=== PATIENT | male | born 2000 | race American Indian/Alaskan Native ===

== ENCOUNTER 2020-07-06 17:28 | Emergency (ER) | payer SELFPAY ==
[2020-07-06 19:15] VITALS: BP 133/74
--- NOTE | 2020-07-06 21:09 | Emergency Department Report ---
Chief Complaint: Extremity Injury, Lower Stated Complaint: LT FOOT/LEG Time Seen by Provider: 07/06/20 20:39 - HPI History of Present Illness: This is a 19-year-old male with no prior medical problems who presents to the ED complaining of left lower leg and foot pain times a week. Patient states his been doing a lot of work standing on his feet all day. Patient states that he started getting pain to the left ankle. Patient states that he has been working through the pain and has not really had any days off. Patient states that he has pain with applied pressure. Patient denies falling, any injuries to the foot or leg. Patient denies any calf pain or calf swelling. Patient states that pain is also felt on his right lower leg as well. - ROS Review of Systems: As noted in HPI - Exam Vital Signs: Vital Signs 07/06/20 19:13 Temperature 98.2 F Pulse Rate 72 Respiratory 16 Rate Blood Pressure 133/74 O2 Sat by Pulse 100 Oximetry Physical Exam: GENERAL: Alert and oriented x3, no apparent distress, Normal Gait, atraumatic. HEAD: Head is normocephalic and a-traumatic. EXTREMITIES/MUSCULOSKELETAL: No cyanosis, clubbing, rash, lesions or edema. Full ROM bilaterally. UE/LE Pulses 2+ bilaterally. LE and UE 5+ strength bilaterally, straight leg raise negative bilaterally. No calf tenderness, Homans' sign negative. No erythematous or pitting edema. NEUROLOGIC: The patient is cooperative with no focal neurologic deficits. Cranial nerves II through XII are grossly intact. Normal speech. Normal sensation in bilateral upper and lower extremities, No loss of sensation, SKIN: Warm and dry, No lesions, No ulceration or induration present. MSE screening note: Focused history and physical exam performed. Due to findings the following was ordered: ED Medical Decision Making - Medical Decision Making 19-year-old male presents to ED with myalgia bilateral leg ED course: Vital signs are normal patient is in no acute distress Discussed with patient follow-up with primary care physician. Discussed the patient and take medications as prescribed. Patient has no neurological deficit. Patient is alert and oriented 3 and understands all instructions given. ED Disposition for MSE Clinical Impression: Myalgia, Ankle pain Disposition: TO HOME OR SELFCARE Is pt being admited?: No Does the pt Need Aspirin: No Condition: Stable Instructions: Musculoskeletal Pain, How to Use Cold Therapy, [id number], Ankle Pain Additional Instructions: Make sure to follow up with the primary care physician as discussed. Take all your medications as you've been prescribed. If you have any worsening symptoms or develop new symptoms please return to ED immediately. Referrals: [facility] [place] [Outside] - 3-5 Days [facility] [Outside] - 3-5 Days Forms: Work/School Release Form(ED) Time of Disposition: 21:06
== END 2020-07-06 21:10 | disposition home or self-care (01) ==
LOC: ED 17:28
DX: M79.18 Myalgia, other site (principal); M25.572 Pain in left ankle and joints of left foot
CPT/HCPCS: 99281